=== PATIENT | female | born 2000 | race Hispanic/Latino ===

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

== ENCOUNTER 2020-06-28 20:42 | Emergency (ER) | payer BC, OTHER ==
[2020-06-28] MEDS ORDERED: METHYLPREDNISOLONE 125 MG INJ ONE (23:16)
[2020-06-28] MEDS ORDERED: DIPHENHYDRAMINE 50 MG/ML VIAL ONE (23:17)
[2020-06-28] MEDS ORDERED: FAMOTIDINE 20 MG/2 ML VIAL IV ONE (23:17)
--- NOTE | 2020-06-29 00:56 | ER ---
Nurse's Notes [facility] Name: Jana Cavanaugh Age: 19 yrs Sex: Female : 2000 Arrival Date: 06/28/2020 Time: 20:48 Bed 6 Private MD: Diagnosis: Allergy status to serum and vaccine status Presentation: 06/28 21:44 Chief complaint: Patient states: since she received the COVID vaccine 3 or 4 days ago bb she feels like her throat is tight and she is having difficulty breathing, she has been having "little panic attacks" which are making her light-headed. Coronavirus screen: At this time, the client does not indicate any symptoms associated with coronavirus-19. COVID vaccine several days ago. Ebola Screen: No symptoms or risks identified at this time. Initial Sepsis Screen: Does the patient meet any 2 criteria? No. Patient's initial sepsis screen is negative. Does the patient have a suspected source of infection? No. Patient's initial sepsis screen is negative. Risk Assessment: Do you want to hurt yourself or someone else?. Onset of symptoms was June 24, 2020. 21:44 Method Of Arrival: Ambulatory bb 21:44 Acuity: JOHANNA 4 bb Triage Assessment: 21:46 General: Appears in no apparent distress. Behavior is calm, cooperative. Pain: Denies bb pain. EENT: Throat is clear is pink. Neuro: Level of Consciousness is awake, alert, obeys commands, Oriented to person, place, time, situation. Cardiovascular: No deficits noted. Respiratory: Reports shortness of breath Onset: The symptoms/episode began/occurred 3 - 4 days, Derm: Skin is pink, warm \\T\\ dry. Musculoskeletal: Circulation, motion, and sensation intact. 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 - Social history:: Smoking status: Patient denies any tobacco usage or history of. Screenin:00 Abuse screen: Denies threats or abuse. Denies injuries from another. Nutritional wh screening: No deficits noted. Tuberculosis screening: No symptoms or risk factors identified. Fall Risk None identified. Assessment: 23:00 General: Appears in no apparent distress. Behavior is calm, cooperative, appropriate wh for age. Pain: Denies pain. Neuro: Level of Consciousness is awake, alert, obeys commands, Oriented to person, place, time, situation, Appropriate for age. Cardiovascular: Heart tones S1 S2 Rhythm is regular. Respiratory: Airway is patent Respiratory effort is even, unlabored, Respiratory pattern is regular, symmetrical, Breath sounds are clear bilaterally. GI: Abdomen is flat, non-distended. : No signs and/or symptoms were reported regarding the genitourinary system. EENT: Throat is pink. Derm: Skin is intact, is healthy with good turgor, Skin is pink, warm \\T\\ dry. normal. Musculoskeletal: Circulation, motion, and sensation intact. 06/29 00:10 Reassessment: Patient appears in no apparent distress at this time. No changes from previously documented assessment. Patient and/or family updated on plan of care and expected duration. Pain level reassessed. Patient is alert, oriented x 3, equal unlabored respirations, skin warm/dry/pink. 01:15 Reassessment: Patient appears in no apparent distress at this time. Patient and/or family updated on plan of care and expected duration. Pain level reassessed. Patient is alert, oriented x 3, equal unlabored respirations, skin warm/dry/pink. Vital Signs: 06/28 21:03 BP 116 / 63; Pulse 80; Resp 18; Temp 98.2; Pulse Ox 100% on R/A; Weight 63.5 kg; Height ar5 5 ft. 1 in. (154.94 cm); Pain 0/10; 06/29 00:00 BP 107 / 56; Pulse 71; Resp 18; Pulse Ox 100% on R/A; wh 01:17 BP 105 / 62; Pulse 78; Resp 18; Pulse Ox 100% on R/A; wh 06/28 21:03 Body Mass Index 26.45 (63.50 kg, 154.94 cm) ar5 ED Course: 06/28 20:48 Patient arrived in ED. cl3 21:46 Triage completed. bb 21:46 Arm band placed on Patient placed in waiting room, Patient notified of wait time. bb 22:41 Page, Guru, PA is PHCP. cp 22:41 Jane Byrd MD is Attending Physician. cp 22:55 Serafin To, RN is Primary Nurse. 23:00 Patient has correct armband on for positive identification. Bed in low position. Call light in reach. Side rails up X 1. Pulse ox on. NIBP on. 23:00 Inserted saline lock: 20 gauge in right antecubital area, using aseptic technique. Blood collected. 06/29 01:17 No provider procedures requiring assistance completed. IV discontinued, intact, bleeding controlled, No redness/swelling at site. Administered Medications: 06/28 23:00 Drug: SOLU-Medrol 125 mg Route: IVP; Site: right antecubital; 06/29 01:18 Follow up: Response: No adverse reaction 06/28 23:02 Drug: Pepcid (famotidine) 20 mg Route: IVP; Site: right antecubital; 06/29 01:18 Follow up: Response: No adverse reaction 06/28 23:04 Drug: Benadryl (diphenhydrAMINE) 25 mg Route: IVP; Site: right antecubital; 06/29 01:18 Follow up: Response: No adverse reaction Outcome: 00:55 Discharge ordered by . cp 01:17 Discharged to home ambulatory. 01:17 Condition: stable 01:17 Discharge instructions given to patient, Instructed on discharge instructions, follow up and referral plans. medication usage, POC Demonstrated understanding of instructions, follow-up care, medications, POC Prescriptions given X 2. 01:18 Patient left the ED. Signatures: Antonina Snowden RN RN bb Page, Corey, PA PA cp Habalo, Winsy, RN Windy Luciano ar5 Navya Rangel cl3
--- NOTE | 2020-06-29 00:56 | EDPHYS ---
Physician Documentation [facility] Name: Jana Cavanaugh Age: 19 yrs Sex: Female : 2000 Arrival Date: 06/28/2020 Time: 20:48 Bed 6 Private MD: ED Physician Jane Byrd HPI: 06/28 22:55 This 19 yrs old Female presents to ER via Ambulatory with complaints of cp Breathing Difficulty. 22:55 The patient presents with tightness of throat. Onset: The symptoms/episode cp began/occurred 4 day(s) ago. 22:55 Associated signs and symptoms: Pertinent negatives chest pain, cough, fever, flu-like cp symptoms. 22:55 Patient reports symptoms started after receiving first dose of Moderna COVID vaccine. 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 - Social history:: Smoking status: Patient denies any tobacco usage or history of. ROS: 23:00 Constitutional: Negative for body aches, chills, fever, poor PO intake. cp 23:00 Eyes: Negative for injury, pain, redness, and discharge. cp 23:00 Cardiovascular: Negative for chest pain, palpitations. 23:00 Respiratory: Negative for cough, wheezing. 23:00 Abdomen/GI: Negative for abdominal pain, nausea, vomiting, and diarrhea. 23:00 Skin: Negative for rash. 23:00 All other systems are negative. Exam: 23:10 Constitutional: The patient appears in no acute distress, alert, awake, cp non-diaphoretic, non-toxic, well developed, well nourished. 23:10 Head/Face: Normocephalic, atraumatic. cp 23:10 Eyes: Periorbital structures: appear normal, Conjunctiva: normal, no exudate, no injection, Sclera: no appreciated abnormality, Lids and lashes: appear normal, bilaterally. 23:10 ENT: External ear(s): are unremarkable, Nose: is normal, Mouth: Lips: moist, Oral mucosa: pink and intact, moist, Posterior pharynx: Airway: no evidence of obstruction, patent. 23:10 Neck: ROM/movement: is normal, is supple, without pain, no range of motions limitations. 23:10 Chest/axilla: Inspection: normal, Palpation: is normal, no crepitus, no tenderness. 23:10 Cardiovascular: Rate: normal, Rhythm: regular. 23:10 Respiratory: the patient does not display signs of respiratory distress, Respirations: normal, no use of accessory muscles, no retractions, labored breathing, is not present, Breath sounds: are clear throughout, no decreased breath sounds, no stridor, no wheezing. 23:10 Abdomen/GI: Exam negative for discomfort, distension, guarding, Inspection: abdomen appears normal. 23:10 Back: pain, is absent, ROM is normal. 23:10 Skin: no rash present. 23:10 Neuro: Orientation: to person, place \T\ time. Mentation: is normal. Vital Signs: 21:03 BP 116 / 63; Pulse 80; Resp 18; Temp 98.2; Pulse Ox 100% on R/A; Weight 63.5 kg; Height ar5 5 ft. 1 in. (154.94 cm); Pain 0/10; 06/29 00:00 BP 107 / 56; Pulse 71; Resp 18; Pulse Ox 100% on R/A; wh 01:17 BP 105 / 62; Pulse 78; Resp 18; Pulse Ox 100% on R/A; wh 06/28 21:03 Body Mass Index 26.45 (63.50 kg, 154.94 cm) ar5 MDM: 06/28 22:51 Patient medically screened. 06/29 00:00 Differential diagnosis: anaphylaxis, strep throat. cp 00:55 Data reviewed: vital signs, nurses notes, and as a result, I will discharge patient. 00:55 Counseling: I had a detailed discussion with the patient and/or guardian regarding: the cp historical points, exam findings, and any diagnostic results supporting the discharge/admit diagnosis, to return to the emergency department if symptoms worsen or persist or if there are any questions or concerns that arise at home. Response to treatment: the patient's symptoms have markedly improved after treatment. Administered Medications: 06/28 23:00 Drug: SOLU-Medrol 125 mg Route: IVP; Site: right antecubital; 06/29 01:18 Follow up: Response: No adverse reaction 06/28 23:02 Drug: Pepcid (famotidine) 20 mg Route: IVP; Site: right antecubital; 06/29 01:18 Follow up: Response: No adverse reaction 06/28 23:04 Drug: Benadryl (diphenhydrAMINE) 25 mg Route: IVP; Site: right antecubital; 06/29 01:18 Follow up: Response: No adverse reaction Disposition: 04:46 Co-signature as Attending Physician, Jane Byrd MD. ma2 Disposition: 06/29/20 00:55 Discharged to Home. Impression: Allergy status to serum and vaccine status. - Condition is Stable. - Discharge Instructions: Allergies, Adult. - Prescriptions for Pepcid 20 mg Oral Tablet - take 1 tablet by ORAL route every 12 hours for 5 days; 10 tablet. Prednisone 20 mg Oral Tablet - take 3 tablet by ORAL route once daily for 5 days; 15 tablet. - Medication Reconciliation Form, Thank You Letter, Antibiotic Education, Prescription Opioid Use form. - Follow up: Private Physician; When: 2 - 3 days; Reason: Worsening of condition. - Problem is new. - Symptoms have improved. Signatures: Antonina Snowden RN RN Guru Brown PA PA cp Habalo, Winsy, RN RN Jane Byrd MD MD ma2 Corrections: (The following items were deleted from the chart) 01:18 00:55 06/29/2020 00:55 Discharged to Home. Impression: Allergy status to serum and vaccine status. Condition is Stable. Forms are Medication Reconciliation Form, Thank You Letter, Antibiotic Education, Prescription Opioid Use. Follow up: Private Physician; When: 2 - 3 days; Reason: Worsening of condition. Problem is new. Symptoms have improved. cp
[2020-06-29 02:21] VITALS: TEMP 98.2; O2SAT 100
[2020-06-29 02:39] VITALS: BP 105/62
== END 2020-06-29 01:18 | disposition home or self-care (01) ==
LOC: ER 20:42
DX: R06.02 Shortness of breath (principal); Z88.7 Allergy status to serum and vaccine
CPT/HCPCS: J1200; J2930; 96374; 96375; 99284

== ENCOUNTER 2021-01-21 17:56 | Emergency (ER) | payer OTHER, SELFPAY ==
--- NOTE | 2021-01-21 19:37 | ER ---
Nurse's Notes [facility] Name: Jana Cavanaugh Age: 20 yrs Sex: Female : 2000 Arrival Date: 01/21/2021 Time: 17:56 Bed 26 Private MD: Diagnosis: Presentation: 01/21 18:04 Chief complaint: Patient states: I began having really sharp pains in my left breast ld1 over the past two weeks, when walking it feels very sore, and warm to touch. Coronavirus screen: At this time, the client does not indicate any symptoms associated with coronavirus-19. Ebola Screen: No symptoms or risks identified at this time. Initial Sepsis Screen: Does the patient meet any 2 criteria? No. Patient's initial sepsis screen is negative. Does the patient have a suspected source of infection? No. Patient's initial sepsis screen is negative. Risk Assessment: Do you want to hurt yourself or someone else? Patient reports no desire to harm self or others. Onset of symptoms was January 06, 2021. 18:04 Method Of Arrival: Ambulatory ld1 18:04 Acuity: JOHANNA 3 ld1 Triage Assessment: 18:06 General: Appears in no apparent distress. comfortable, Behavior is calm, cooperative, ld1 appropriate for age. Pain: Complains of pain in left breast Pain does not radiate. Pain currently is 8 out of 10 on a pain scale. Quality of pain is described as heavy, sharp, shooting, throbbing, Pain began two weeks Is continuous. Neuro: Level of Consciousness is awake, alert, obeys commands, Oriented to person, place, time, situation, Appropriate for age. Cardiovascular: Denies chest pain, Capillary refill < 3 seconds Patient's skin is warm and dry. Respiratory: Airway is patent Respiratory effort is even, unlabored, Respiratory pattern is regular, symmetrical. 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 - Social history:: Smoking status: Patient denies any tobacco usage or history of. Patient/guardian denies using alcohol. Assessment: 19:16 General: Appears in no apparent distress. comfortable, Behavior is calm, cooperative. vg1 Pain: Complains of pain in left breast Pain currently is 8 out of 10 on a pain scale. Quality of pain is described as burning, sharp, tender, Pain began about two weeks ago. Neuro: Level of Consciousness is awake, alert, obeys commands, Oriented to person, place, time, situation. Cardiovascular: Patient's skin is warm and dry. Respiratory: Airway is patent Respiratory effort is even, unlabored. GI: No signs and/or symptoms were reported involving the gastrointestinal system. : No signs and/or symptoms were reported regarding the genitourinary system. EENT: No signs and/or symptoms were reported regarding the EENT system. Derm: Skin is intact. Derm:. Musculoskeletal: Circulation, motion, and sensation intact. 19:35 Reassessment: spoke to pt's shade matcher who states pt is very upset and embarrassed by bb how nurse talked to her pt left the ED. Vital Signs: 18:04 BP 120 / 73; Pulse 70; Resp 18; Temp 98.7(O); Pulse Ox 98% on R/A; Weight 65.77 kg; ld1 Height 5 ft. 1 in. (154.94 cm); Pain 8/10; 18:04 Body Mass Index 27.40 (65.77 kg, 154.94 cm) ld1 ED Course: 17:56 Patient arrived in ED. am2 18:06 Triage completed. ld1 18:06 Arm band placed on right wrist. ld1 18:45 Carlene Navarrete RN is Primary Nurse. vg1 19:32 Guru Stapleton MD is Attending Physician. kate Administered Medications: No medications were administered Outcome: 19:36 Patient left the ED. bb Signatures: Guru Stapleton MD MD cha Ballard, Brenda RN RN bb Addis Barraza am2 Carlene Navarrete RN RN vg1 Susan Holliday RN RN ld1
[2021-01-21 19:40] VITALS: BP 120/73; TEMP 98.7; O2SAT 98
== END 2021-01-21 19:36 | disposition left against medical advice (07) ==
LOC: ER 17:56
DX: Z53.21 Procedure and treatment not carried out due to patient leaving prior to being seen by health care provider (principal)
CPT/HCPCS: 99281

== ENCOUNTER 2023-01-27 08:53 | Day surgery (SDC) | payer OTHER ==
[2023-01-27] MEDS ORDERED: Ringers Lactate 1,000 ML IV ONE (09:33)
[2023-01-27] MEDS ORDERED: OXYMETAZOLINE HCL 0.05% 15ML NAS ONE ×2 (09:33→11:31)
[2023-01-27] MEDS ORDERED: LIDOCAINE HCL/EPINEPHRINE 20 ML MDV ONE ×2 (11:31→11:41)
[2023-01-27] MEDS ORDERED: BACITRACIN OINTMENT 14 GM TUBE TOP ONE (11:31)
[2023-01-27] MEDS ORDERED: dexAMETHasone 10 MG/ML VIAL ONE (11:40)
[2023-01-27] MEDS ORDERED: LIDOCAINE 2% MPF 5 ML VIAL ONE (11:40)
[2023-01-27] MEDS ORDERED: MIDAZOLAM HCL 2 MG/2 ML INJ ONE (11:40)
[2023-01-27] MEDS ORDERED: propofoL 200 MG/20 ML VIAL IV ONE (11:40)
[2023-01-27] MEDS ORDERED: ROCURONIUM 50 MG/5 ML VIAL IV ONE (11:40)
[2023-01-27] MEDS ORDERED: FENTANYL CITR 100 MCG/2 ML ONE ×2 (11:40→12:35)
[2023-01-27] MEDS ORDERED: ONDANSETRON 4 MG/2 ML VIAL ONE (11:45)
[2023-01-27 13:23] VITALS: O2SAT 100
--- NOTE | 2023-01-27 13:35 | P.OP ---
Induction Machine Operator: NONE,NONE Preoperative diagnosis: Septal deviation, cindy bullosa, turbinate hypertrophy, nasal obstruction Postoperative diagnosis: Same Primary procedure: Septoplasty Secondary procedure: Nasal endoscopy with right cindy resection Other procedure(s): Turbinate outfracture Anesthesia: General via endotracheal tube Estimated blood loss: 5-10 mL Specimen: Septal cartilage and bone Operative Technique: Patient was brought to the operating room and placed under general anesthesia via oral endotracheal tube. Nasal hairs were trimmed and the 0 degree endoscope. The patient was noted to have a widened right middle turbinate, prominent bilateral inferior turbinates and left high septal deviation. The tract balloon device was placed in the right nasal cavity along the nasal floor and slowly inflated to the pressure of 10 dana and held in place for 2 minutes. The balloon was slowly released and removed. This resulted in significant down fracture and compression of the inferior turbinate along with mobilization and compression of the prominent right maxillary spine. Similar procedure was performed on the left side resulting in excellent down fracture of the left inferior turbinate. 0 degree endoscope was then used to visualize the right nasal cavity with attention to the middle turbinate. The head of the middle turbinate was injected with 1% lidocaine with epinephrine. A sickle knife and endoscopic scissors were used to incise through the head of the middle turbinate and along its superior and inferior aspects with removal of the lateral aspect, leaving the main portion of the middle turbinate in place. The bone fragment was removed using Blakesley forceps and a Bahman-Cut was used to refine the cut edges. Removal of this bone resulted in significant widening of the middle meatus region in regards to airflow. Attention was then turned to the septum. Using a headlight and nasal speculum, a left mucosal incision was made approximately 1-1/2 cm from the caudal aspect. The left mucosa was carefully elevated from the underlying cartilage and bone revealing the curved upper portion. A scalpel and caudal elevator were used to incise through the cartilaginous portion of the septum and the right mucosa was carefully elevated from the bone. Grigsby rongeurs and through cut Blakesley was used to remove portions of cartilage and bone to allow positioning of the septum towards midline. After adequate removal, the septum appeared to be much improved. The mucosal flap was carefully repositioned. Due to the location of the incision, closure was not performed but the right and left nasal cavities were packed using a positive separate nasal dressing. The positive step was thoroughly soaked with saline to aid in hemostasis and provide protection over the left septal incision. The oral cavity and oropharynx were carefully suctioned and the patient was returned to care of anesthesia for awakening extubation in the operating room procedure without difficulty. Disposition: The patient will be discharged home later today and care her boyfriend with [id number] pain medications and tramadol to be used as needed. Nasal precautions are required including avoidance of nose blowing, heavy lifting and the patient is recommended to use nasal saline spray multiple times per day over the next 2 weeks. Complications: None Implants: Posisep to bilateral nasal cavity Fluids & blood products: See anesthesia record Transferred to: Recovery Room Condition: Good
[2023-01-27] MEDS ORDERED: MEPERIDINE HCL 25 MG/ML SYR ONE (13:55)
[2023-01-27 14:09] LABS: Urine Specific Gravity/Preg 1.015 (1.005-1.030)
[2023-01-27 14:59] VITALS: BP 129/76; TEMP 97.6
== END 2023-01-27 14:53 | disposition home or self-care (01) ==
LOC: OR 08:53
PROVIDERS: ATTEND Otolaryngology
PROC: 09SM4ZZ Reposition Nasal Septum, Percutaneous Endoscopic Approach (ICD-10-PCS; 2023-01-27)
PROC: 09JK8ZZ Inspection of Nasal Mucosa and Soft Tissue, Via Natural or Artificial Opening Endoscopic (ICD-10-PCS; principal; 2023-01-27 10:00)
DX: J34.2 Deviated nasal septum (principal); J34.89 Other specified disorders of nose and nasal sinuses; J34.3 Hypertrophy of nasal turbinates
CPT/HCPCS: 31240; 30520; 30930; 81025; 88300; J2704; J2001; J2250; J3010 ×2; J1100; J2175; J2405; J7120

== ENCOUNTER 2023-08-14 20:27 | Emergency (ER) | payer OTHER ==
[2023-08-14] MEDS ORDERED: KETOROLAC 30 MG/ML INJ ONE (20:47)
[2023-08-14] MEDS ORDERED: DIAZEPAM 10 MG/2 ML INJ SYRINGE ONE (20:47)
[2023-08-14 21:17] LABS: Absolute Eosinophils 0.5 K/uL (0-0.5); Absolute Monocytes 0.7 K/uL (0.1-1.3); Absolute Neutrophil 2.9 K/uL (1.8-8.0); Basophils % 0.4 % (0-1.3); Eosinophils % 5.3 % (0-4.4); Hematocrit 37.5 % (36.0-45.0); Hemoglobin 12.7 g/dL (12.0-15.0); Lymphocytes % 54.5 % (15.3-44.8); MCH 29.7 pg (27.0-35.0); MCHC 33.8 g/dL (32.0-36.0); MCV 87.8 fL (80-100); MPV 7.7 fL (7.6-11.3); Neutrophils % 31.8 % (41.7-73.7); Nucleated Red Blood Cells % 0.1 % (0-0); Platelets 309 thou/uL (152-406); RBC Red Blood Cell Count 4.27 M/uL (3.86-4.86); Red Cell Distribution Width 12.8 % (12.1-15.2)
[2023-08-14 21:22] LABS: Anion Gap 15.2 mEq/L (5.0-15.0); BUN Blood Urea Nitrogen 19 mg/dL (7-18); Bicarbonate 21 mEq/L (21-32); Glomerular Filtration Rate 76 ml/min (=/>90); Glucose Level 154 mg/dL (74-106); Potassium 3.2 mEq/L (3.5-5.1); Sodium Level 136 mEq/L (136-145)
[2023-08-14 21:23] LABS: Troponin High Sensitivity < 3.0 pg/mL (<58.9)
--- NOTE | 2023-08-14 21:37 | RAD REPORT ---
EXAM DESCRIPTION: RAD - Chest Single View - 08/14/2023 9:29 pm CLINICAL HISTORY: CHEST PAIN COMPARISON: No comparisons FINDINGS: Lines: None. Lungs: No evidence of edema or pneumonia. Pleural: No significant pleural effusions or pneumothorax. Cardiac: The heart size is within normal limits. Mediastinum: Within normal limits. Bones: No acute fractures. Other: None IMPRESSION: No acute cardiopulmonary disease.
--- NOTE | 2023-08-14 22:20 | RAD REPORT ---
EXAM DESCRIPTION: CTAbdomen Pelvis W Contrast - 08/14/2023 10:10 pm CLINICAL HISTORY: ABD PAIN COMPARISON: Abdomen Pelvis W Contrast dated 12/15/2017 TECHNIQUE: CT of the abdomen and pelvis was performed. All CT scans are performed using dose optimization technique as appropriate and may include automated exposure control or mA/KV adjustment according to patient size. FINDINGS: Lower chest: No acute abnormality. Liver: No acute abnormality or suspicious lesions. Biliary: No biliary ductal dilatation. Stomach: No significant focal abnormality. Duodenum: No significant focal abnormality. Pancreas: No significant abnormality. Spleen: No significant abnormality. Adrenal: No suspicious lesions. Kidney/ureter: No hydronephrosis. No renal calculi. Retroperitoneum: No retroperitoneal adenopathy. Vascular: No aneurysm. Bowel: No significant focal abnormality. Moderate colonic stool burden. No appendicitis. Peritoneum: No ascites or free air. Bladder: Grossly unremarkable. Reproductive: IUD. Bones: No acute fracture. Other: n/a IMPRESSION: No acute intra-abdominal or pelvic finding. Normal appendix.
--- NOTE | 2023-08-14 22:30 | ER ---
Nurse's Notes [facility] Name: Jana Ramon Age: 22 yrs Sex: Female : 2000 Arrival Date: 08/14/2023 Time: 20:27 Bed 3 Private MD: Diagnosis: Anxiety disorder, unspecified;Abdominal pain, Generalized;Hypokalemia Presentation: 08/13 20:28 Chief complaint: Patient states: PAIN ALL OVER BODY STARTED 30 MINUTES AGO. HAS HX OF jj7 ANXIETY. Coronavirus screen: At this time, the client does not indicate any symptoms associated with coronavirus-19. Ebola Screen: No symptoms or risks identified at this time. Initial Sepsis Screen: Does the patient meet any 2 criteria? HR > 90 bpm. Yes Does the patient have a suspected source of infection? No. Patient's initial sepsis screen is negative. Risk Assessment: Do you want to hurt yourself or someone else? Patient reports no desire to harm self or others. Onset of symptoms was August 14, 2023. 20:28 Method Of Arrival: Ambulatory [facility] 20:28 Acuity: JOHANNA 3 jj7 Triage Assessment: 20:29 General: Appears in no apparent distress. comfortable, Behavior is cooperative, jj7 appropriate for age, anxious. Pain: Complains of pain in back, chest and abdomen. Cardiovascular: Chest pain is described as mild. 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 - Infectious Disease History:: Denies. - Social history:: Smoking status: Patient denies any tobacco usage or history of. Patient/guardian denies using alcohol, street drugs, IV drugs. Screenin:52 [facility] ED Fall Risk Assessment (Adult) History of falling in the last 3 months, kd3 including since admission No falls in past 3 months (0 pts) Confusion or Disorientation No (0 pts) Intoxicated or Sedated No (0 pts) Impaired Gait No (0 pts) Mobility Assist Device Used No (0 pt) Altered Elimination No (0 pt) Score/Fall Risk Level 0 - 2 = Low Risk Oriented to surroundings. Abuse screen: Denies threats or abuse. Denies injuries from another. Nutritional screening: No deficits noted. Tuberculosis screening: No symptoms or risk factors identified. Assessment: 21:51 General: Appears uncomfortable. Neuro: Level of Consciousness is awake, alert, obeys kd3 commands, Oriented to person, place, time, situation. Respiratory: Airway is patent Trachea midline Respiratory effort is even, unlabored. 21:57 General: PT reports improvement of symptoms with interventions. Pt awaiting CT. . kd3 Vital Signs: 20:28 BP 131 / 86; Pulse 115; Resp 21; Temp 97; Pulse Ox 100% ; Weight 63.5 kg; Height 5 ft. jj7 1 in. ; Pain 10/10; 21:08 Pulse 102; ec2 21:26 Pulse 90; ec2 21:57 BP 108 / 68; Pulse 87; Resp 19; Pulse Ox 99% ; kd3 20:28 Body Mass Index 26.45 (63.50 kg, 154.94 cm) jj7 20:28 Pain Scale: Adult j7 ED Course: 20:28 Patient arrived in ED. ec2 20:29 Triage completed. jj7 20:29 Arm band placed on right wrist. jj7 20:31 Farooq Peterson MD is Attending Physician. ec2 20:44 Shannan Salter, FLIP is Primary Nurse. kd3 20:44 Inserted saline lock: 20 gauge in left antecubital area, using aseptic technique. Blood kd3 collected. 21:31 XRAY Chest (1 view) In Process Unspecified. EDMS 22:12 CT Abd/Pelvis - IV Contrast Only In Process Unspecified. EDMS 22:39 Patient has correct armband on for positive identification. Provided Education on: lab kd3 work . 22:39 No provider procedures requiring assistance completed. IV discontinued, intact, kd3 bleeding controlled, No redness/swelling at site. Pressure dressing applied. Administered Medications: 20:52 Drug: Diazepam IVP 10 mg IVP once Route: IVP; Site: left antecubital; kd3 22:40 Follow up: Response: No adverse reaction; Anxiety decreased kd3 20:53 Drug: Ketorolac IVP 15 mg IVP once Route: IVP; Site: left antecubital; kd3 22:40 Follow up: Response: No adverse reaction; Pain is decreased kd3 Medication: 22:40 VIS not applicable for this client. kd3 Outcome: 22:29 Discharge ordered by . ec2 22:39 Discharged to home ambulatory, kd3 22:39 Condition: stable 22:39 Discharge instructions given to patient, family, Instructed on discharge instructions, follow up and referral plans. medication usage, Demonstrated understanding of instructions, follow-up care, 22:40 Patient left the ED. kd3 Signatures: Dispatcher [employer] Shannan Appiah RN RN kd3 Phill Alfonso RN RN jj7 Farooq Peterson MD MD ec2
--- NOTE | 2023-08-14 22:30 | EDPHYS ---
Physician Documentation [facility] Name: Jana Ramon Age: 22 yrs Sex: Female : 2000 Arrival Date: 08/14/2023 Time: 20:27 Bed 3 Private MD: ED Physician Farooq Peterson HPI: 08/13 20:41 This 22 yrs old Female presents to ER via Ambulatory with complaints of body ec2 pain, bilateral hand numbness. 20:41 Patient arrives today for 1 day of symptoms. Patient reports that she has been ec2 experiencing chest and abdominal pain along with bilateral hand tingling. Patient reports history of anxiety and bipolar disorder. Patient reports no specific alleviating or exacerbating factors. Denies fevers or chills, no nausea or vomiting. . 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 - Infectious Disease History:: Denies. - Social history:: Smoking status: Patient denies any tobacco usage or history of. Patient/guardian denies using alcohol, street drugs, IV drugs. ROS: 20:41 Constitutional: as per hpi ec2 Exam: 20:41 Constitutional: GEN: NAD Head: atraumatic Eyes: EOMI Ears: External ears are ec2 normal. CV: tachycardic LUNGS: no respiratory distress ABD: non-distended, soft, generally tender, no guarding, not rigid. SKIN: no evidence of rashes MSK: no evidence of trauma NEURO: moves all extremities equally. Psych: Markedly anxious individual was restless. Vital Signs: 20:28 BP 131 / 86; Pulse 115; Resp 21; Temp 97; Pulse Ox 100% ; Weight 63.5 kg; Height 5 ft. jj7 1 in. ; Pain 10/10; 21:08 Pulse 102; ec2 21:26 Pulse 90; ec2 21:57 BP 108 / 68; Pulse 87; Resp 19; Pulse Ox 99% ; kd3 20:28 Body Mass Index 26.45 (63.50 kg, 154.94 cm) [facility] 20:28 Pain Scale: Adult jj7 MDM: 20:32 Patient medically screened. ec2 20:41 Data reviewed: vital signs. ED course: Patient arrives today for evaluation of thoracic ec2 abdominal pain along with bilateral upper extremity numbness. Examination remarkable for anxious individual who is tender in the abdomen. Will obtain lab work, urine studies, testing as well as EKG. Differential diagnosis includes processes such as anxiety, , electrolyte disturbances, arrhythmia.. 20:43 ED course: Dependently reviewed and interpreted by me, marked artifact appreciated, ec2 shows sinus tachycardia, rate of 103, no acute ST segment elevations, intervals are nonconcerning.. 21:26 ED course: Metabolic profile shows slight hypokalemia with potassium of 3.2, renal ec2 dysfunction with creatinine 1.05 and a GFR 76. CBC is unrevealing, troponin is within normal ranges. On reassessment patient with improvement in status, improvement in vital signs. . 21:43 ED course: Chest x-ray independently reviewed and interpreted by me, shows no acute ec2 intrathoracic process. Pending testing and CT imaging. . 22:22 ED course: CT abdomen pelvis shows no acute intra-abdominal process. On reassessment ec2 patient is well-appearing no acute distress. I suspect anxiety driving the patient's presentation today. Will discharge home. Return precautions given.. 08/13 20:40 Order name: Basic Metabolic Panel; Complete Time: 21:26 ec2 08/13 20:40 Order name: CBC with Diff; Complete Time: 21: ec2 08/13 20:40 Order name: Troponin HS; Complete Time: 21: ec2 08/13 21:26 Order name: Test Serum, Qualitat; Complete Time: 21:59 EDMS 08/13 20:40 Order name: XRAY Chest (1 view); Complete Time: 21:43 ec2 08/13 20:40 Order name: CT Abd/Pelvis - IV Contrast Only; Complete Time: 22:22 ec2 08/13 20:40 Order name: EKG; Complete Time: 20:41 ec2 08/13 20:40 Order name: Cardiac monitoring; Complete Time: 20:44 ec2 08/13 20:40 Order name: EKG - Nurse/Tech; Complete Time: 20:44 ec2 08/13 20:40 Order name: IV Saline Lock; Complete Time: 20:44 ec2 08/13 20:40 Order name: Labs collected and sent; Complete Time: 20:44 ec2 08/13 20:40 Order name: O2 Per Protocol; Complete Time: 20:44 ec2 08/13 20:40 Order name: O2 Sat Monitoring; Complete Time: 20:44 ec2 Administered Medications: 20:52 Drug: Diazepam IVP 10 mg IVP once Route: IVP; Site: left antecubital; kd3 22:40 Follow up: Response: No adverse reaction; Anxiety decreased kd3 20:53 Drug: Ketorolac IVP 15 mg IVP once Route: IVP; Site: left antecubital; kd3 22:40 Follow up: Response: No adverse reaction; Pain is decreased kd3 Disposition Summary: 08/14/23 22:29 Discharge Ordered Notes: Location: Home ec2 Condition: Stable ec2 Diagnosis - Anxiety disorder, unspecified ec2 - Abdominal pain, Generalized ec2 - Hypokalemia ec2 Discharge Instructions: - Discharge Summary Sheet ec2 - Panic Attack ec2 Forms: - Medication Reconciliation Form ec2 - Antibiotic Education ec2 - Prescription Opioid Use ec2 - Patient Portal Instructions ec2 - Leadership Thank You Letter ec2 Signatures: Dispatcher [employer] Shannan Appiah RN RN kd3 Phill Alfonso RN RN jj7 Farooq Peterson MD MD ec2 Corrections: (The following items were deleted from the chart) 21:45 21:43 ED course: Chest x-ray independently reviewed and interpreted by me, shows no ec2 acute intrathoracic process. Pending lab work and CT imaging. . ec2 21:58 20:43 Test, Urine+UC.LAB.BRZ ordered. EDMS EDMS
[2023-08-14 23:02] VITALS: BP 108/68; TEMP 97; O2SAT 99
--- NOTE | 2023-08-15 14:11 | EKG ---
Test Date: 2023-08-14 Test Time: 20:36:38 Continuing Education Specialist: ALEXANDRO MEASUREMENT RESULTS: Intervals: Rate: 103 WI: 126 QRSD: 78 QT: 338 QTc: 442 [place]: P: 41 WI: 126 QRS: 67 T: 13 INTERPRETIVE STATEMENTS: Sinus tachycardia Otherwise normal ECG No previous ECG available for comparison Electronically Signed On 08-15-23 14:09:55 CDT by Андрей Chanel
== END 2023-08-14 22:40 | disposition home or self-care (01) ==
LOC: ER 20:27
DX: F41.9 Anxiety disorder, unspecified (principal); R10.84 Generalized abdominal pain; E87.6 Hypokalemia
CPT/HCPCS: 93005; 85025; 80048; 36415; 84703; 84484; 74177; 71045; 96375; 96374; 99284; Q9967; J3360

== ENCOUNTER 2023-11-16 08:34 | Day surgery (SDC) | payer OTHER ==
[2023-11-13 11:36] LABS: Absolute Basophils 0.1 K/uL (0-0.5); Absolute Eosinophils 0.5 K/uL (0-0.5); Absolute Lymphocytes (CBC) 2.8 K/uL (0.7-4.9); Absolute Monocytes 0.6 K/uL (0.1-1.3); Absolute Neutrophil 2.9 K/uL (1.8-8.0); Basophils % 0.9 % (0-1.3); Eosinophils % 6.6 % (0-4.4); Hematocrit 39.8 % (36.0-45.0); Hemoglobin 13.2 g/dL (12.0-15.0); Lymphocytes % 41.1 % (15.3-44.8); MCHC 33.2 g/dL (32.0-36.0); MCV 90.3 fL (80-100); MPV 8.2 fL (7.6-11.3); Monocytes % 8.7 % (3.3-12.3); Neutrophils % 42.7 % (41.7-73.7); Platelets 286 thou/uL (152-406); RBC Red Blood Cell Count 4.41 M/uL (3.86-4.86); Red Cell Distribution Width 12.6 % (12.1-15.2)
[2023-11-13 11:36] LABS: Specific Gravity < 1.005 (1.005-1.030); Sqamous Epithelial <5 /HPF (None Seen); Urine Bacteria None Seen /HPF (<20); Urine Bilirubin NEGATIVE (Negative); Urine Blood 3+ (Negative); Urine Clarity Turbid (Clear); Urine Color Colorless (Yellow); Urine Culture Reflex Order NOT NEEDED; Urine Glucose NEGATIVE (Negative); Urine Ketones NEGATIVE (Negative); Urine Microscopic Reflex YN ORDER UMIC; Urine Nitrite NEGATIVE (Negative); Urine Protein NEGATIVE (Negative); Urine RBC <5 /HPF (None Seen); Urine Urobilinogen Normal (Normal); Urine WBC <5 /HPF (<5); Urine pH 6.5 (5.0-7.0)
[2023-11-15 13:24] LABS: Specific Gravity 1.015 (1.005-1.030)
[2023-11-16] MEDS: Ringers Lactate 1,000 ML IV ONE ×2 (09:02→11:15)
[2023-11-16] MEDS: SCOPOLAMINE HYDROBROMIDE PATCH TD ONE (09:12)
[2023-11-16] MEDS ORDERED: propofoL 200 MG/20 ML VIAL IV ONE (09:56)
[2023-11-16] MEDS ORDERED: LIDOCAINE 1% MPF 5 ML VIAL ONE (09:56)
[2023-11-16] MEDS ORDERED: dexAMETHasone 10 MG/ML VIAL ONE (09:56)
[2023-11-16] MEDS ORDERED: FENTANYL CITR 100 MCG/2 ML ONE ×2 (09:56→11:12)
[2023-11-16] MEDS ORDERED: ROCURONIUM 50 MG/5 ML VIAL IV ONE (09:56)
[2023-11-16] MEDS ORDERED: MIDAZOLAM HCL 2 MG/2 ML INJ ONE (09:56)
[2023-11-16] MEDS ORDERED: ONDANSETRON 4 MG/2 ML VIAL ONE (09:56)
[2023-11-16] MEDS: CEFAZOLIN SODIUM 2 GM/VIAL ONE (10:10)
[2023-11-16] MEDS ORDERED: EPHEDRINE SULF 50 MG/ML VIAL ONE (10:33)
[2023-11-16] MEDS: BUPIVACAINE 0.25% PF 30 ML VIAL ONE (10:38)
[2023-11-16] MEDS ORDERED: KETOROLAC 30 MG/ML INJ ONE (12:30)
[2023-11-16] MEDS: PROMETHAZINE INJ 25 MG/ML AMP ONE (13:15)
[2023-11-16 13:22] VITALS: O2SAT 98
[2023-11-16] MEDS: HYDROCODONE/APAP 5/325 MG TAB ONE (13:55)
[2023-11-16 14:19] VITALS: BP 119/60; TEMP 97.6
--- NOTE | 2023-11-16 18:22 | OP ---
Date of Procedure: 11/16/2023 Surgeon: Felicitas Desai MD Kiln Operator: Henna Quinones. Preoperative Diagnoses: Abnormal uterine bleeding, pelvic pain, dysmenorrhea, deep dyspareunia, freq uency of urination, and . 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 Procedures Performed: 1.Diagnostic hysteroscopy. 2.Diagnostic laparoscopy, extensive endometriosis excision, left ureterolysis, rectovaginal septum e ndometriotic nodule excision with dissection of the rectum from the endometrial implants. Estimated Blood Loss: 50. Anesthesia: General endotracheal. Complications: No complications. Drains: No drains. Condition: Stable. Specimens: 1.Right anterior cul-de-sac. 2.Left lateral wall and uterosacral ligament. 3.Left pararectal endometriosis. 4.Right pararectal and rectovaginal septum endometriotic nodule. 5.Right lateral wall and uterosacral endometriosis. Findings: Anterior cul-de-sac at the line of the bladder pillar endometriotic nodule was noted and e xcised. In a similar location on the opposite side, a very slight amount of brownish discoloration o n the peritoneum was noted without an implant and this was cauterized. Both uterosacral ligaments had implants in at least distal 4-5 cm of the ligament and nodular implant s on the left side that was lateral to the uterosacral between the ureter and the uterosacral and the n the nodule on the right is between the uterosacral in the rectum and the right pararectal space francisco t was invading the rectovaginal septum and adhesions going to the rectum. Right lateral wall implant s were also noted and excised. Small left paratubal cyst that was unremarkable and left undisturbed. Both ovaries were unremarkable as well as the tubes and round ligaments. The left round ligament h ad a small cystic area, which is not related to the endometriosis. Appendix, gallbladder, liver, upp er abdominal surfaces were all closely inspected and unremarkable. No evidence of an endometriosis. The IUD was well situated in the uterine cavity, however, after completing the case and having placed the uterine manipulator and removed, the strings were tucked into the cervical canal and difficult t o find, but these were left alone as there was no concern for displacement of the IUD or perforation. Indications: The patient is a young 22-year-old 0 with significant progressive dysmenorrhea and pelvic pain that is noncyclic and more recently has noticed dyspareunia, urinary urgency and freq uency symptoms, managed on oral contraceptives, had side effects with mood. Now on a ParaGard IUD fo r control. Had a hormonal progesterone IUD in the past, but she did not do well with. However , her progressive pain was the most leading reason for her procedure. Her bleeding was irregular, bu t not too heavy. No evidence of any infections of the cervix or uterus. No other clinical suspicion of bladder infect ions, so we discussed about the different options of treatment including medical treatment with GnRH antagonist or diagnostic laparoscopy endometriosis excision and then proceed with treatment as needed . After understanding the advantages and disadvantages of surgical and medical therapies, patient fe lt strongly that knowing a diagnosis and having the excision would be more acceptable at this time an d after understanding the bleeding, infection, injury to the bowel, bladder, and ureters risk, she wa s consented and brought to the OR. Description Of Procedure: After informed consent was re-verified in the preoperative area with her b oyfriend also present by her side and questions, answers were completed to their satisfaction. She w as then taken back to the OR. Placed in supine fashion on the operating table, general anesthesia was given. Placed in a dorsal li thotomy position using Antwon stirrups. Abdomen was prepped with ChloraPrep. Vulva, vagina, and yasemin neum with Betadine and draped in a sterile fashion. Arms were tucked by the side. SCDs were started . Positioning was checked. Time-out was done and procedure started. Diagnostic hysteroscopy, speculum placed to expose the cervix. Anterior lip was grasped with a long Allis clamp. Diagnostic hysteroscope was passed through the cervical canal into the uterine cavity. The IUD was well laid into the uterine cavity. No distortions, anatomical abnormalities here. Scop e was removed. Uterine manipulator was introduced and fixed in place. Gonzalez was placed to drain the bladder and attached to a drainage bag set to gravity. Diagnostic laparoscopy: A 10 mm infraumbilical curvilinear incision was made after 0.25% Marcaine wa s injected in the subcutaneous area with an 11 blade. Fascia was incised with the same and picked up with Hailey clamps. Then, the edges were tagged with 0 Vicryl sutures on each side. Peritoneum was entered sharply. Wily introduced after adequate insufflation. Site of entry was checked and was unremarkable. The patient was placed in Trendelenburg position. Three 5 ports were placed suprapubi c and bilateral lower quadrants under direct vision after injecting with Marcaine at both the fascia and the skin. Then, upper abdominal survey was completed, unremarkable liver, gallbladder, peritonea l surfaces, omentum, and appendix. The patient was placed in Trendelenburg and pelvic cavity was ass essed and the implants as discussed in the findings. Plan was to excise all the implants. Starting with an anterior right bladder pillar, peritoneal surface implant was picked up and circumfe rentially incised with the help of scissors and with the LigaSure with minimal coagulation, able to e xcise the entire implant. The small underlying tissue that was attached and it seemed to be the bloo d supply of the implant. This was also cauterized and cut until normal tissue was seen. The contral ateral side on the anterior cul-de-sac in a similar location, hemosiderin discoloration was seen and this was cauterized with the bipolar current. Left ureterolysis: The ureter appeared scarred to the left lateral wall implants as well as the uter osacral. 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 So, the ureter first had to be dissected and . So, peritoneum opened lateral to the ureter. The periureteric connective tissue was by sharp dissection from the peritoneal surface an d then the entire ureter was dissected from the medial surface of the broad ligament and dissected to the level of the ureteric tunnel. The relationship of the uterine vessels and the ureter were well visualized here and the ureter protected carefully with its blood supply. The peritoneal implants were then dissected from the left lateral wall and from the uterine vein. On ce the implants were from here and left on the uterosacral, then I started on the implant t hat was nodular on the peritoneum close to the distal uterosacral, but slightly lateral where the [place] rine vessels entered here. Careful dissection was performed along the uterine vein to take down all the blood supply to this implant and excised the implant at completion. Then, the peritoneum that wa s medial to the implants was incised and I had to excise a portion of the uterosacral connective tiss ue as well due to the infiltration of the implants. Once all this was excised in a single block, was handed out for permanent pathology. Left pararectal space was opened up with sharp scissors between the rectum and the nodule and this wa s circumferentially excised from its surrounding and underlying tissues and its attachment from the m edial aspect of the distal uterosacral. This was handed out. Right pararectal nodule: This was dissected by opening up the peritoneum that was free and did not h ave endometriosis on the superior portion of the rectovaginal septum. Then, entered into the prerect al space by dissecting the rectum down and incising the peritoneum sharply. Then, the prerectal fat was dissected to keep the fat mostly with the rectum. However, once I got to the right pararectal sp gita, this was dissected. The implant was completely excised from the space carefully protecting the nerves and keeping the dissection close to the perimeter of the nodule, however, being careful not to leave any endometriosis behind. Then, dissection was performed between the rectum and the nodule wi th push spread technique. Carefully the rectum was and the nodule resected. The last port ion of it was attached to the medial uterosacral and this was also excised and the nodule was brought out through the 10 port. The right lateral wall implants were excised by opening up the peritoneum lateral to them and dissect ing inferior and towards the uterine vessels and the distal ureter. All the underlying scar was also removed along with the implants and some implants present on the distal right uterosacral, these wer e excised carefully. Some portion of the uterosacral ligament was also excised with the another nodu lar implant immediately medial to it here. This was excised and included with the same specimen. Th orough irrigation and suction were performed. Excellent hemostasis. Both ureters were peristaltic w ithout any electrical, mechanical, or thermal injury to them. The S Sizer medium size was placed int o the rectum to ensure that the rectal wall was intact after all the nodular endometriosis was excise d. Portion of the rectovaginal septum on the right side was also excised along with this implant. Did not need to repair this portion. The fluid used to irrigate was suctioned out and there was hemo stasis and all pictures were taken and case ended. All the specimen labeled appropriately . Trocars were removed under direct vision. Gas was desufflated. Wily was removed. The tagged 0 Vicryl suture was used to close the fascial incision. All skin incisions were closed with interrupt ed 4-0 Monocryl sutures. Instrument, needle, and sponge counts were correct at the end of the case. The Gonzalez and the diagnostic manipulator were removed carefully. The strings were not visualized. IUD was not removed, left in place. We will follow up in 1 week and then 3 months postop. No other postoperative medications are planned for this patient in terms of treating endometriosis. Her signi ficant other was debriefed about her findings and she will have detailed explanation at the postop ap pointment. GO/MERARY Voice ID: [id number] Report ID: [id number]
== END 2023-11-16 14:10 | disposition home or self-care (01) ==
LOC: OR 08:34
PROVIDERS: ATTEND Obstetrics & Gynecology
PROC: 0DBW4ZZ Excision of Peritoneum, Percutaneous Endoscopic Approach (ICD-10-PCS; 2023-11-16)
PROC: 0WBF4ZZ Excision of Abdominal Wall, Percutaneous Endoscopic Approach (ICD-10-PCS; 2023-11-16)
PROC: 0DBP4ZZ Excision of Rectum, Percutaneous Endoscopic Approach (ICD-10-PCS; 2023-11-16)
PROC: 0TN74ZZ Release Left Ureter, Percutaneous Endoscopic Approach (ICD-10-PCS; 2023-11-16)
PROC: 0UJD8ZZ Inspection of Uterus and Cervix, Via Natural or Artificial Opening Endoscopic (ICD-10-PCS; principal; 2023-11-16 09:30)
DX: N93.9 Abnormal uterine and vaginal bleeding, unspecified (principal); R10.2 Pelvic and perineal pain; N94.6 Dysmenorrhea, unspecified; N94.12 Deep dyspareunia; R35.0 Frequency of micturition; N80.A62 Endometriosis of left ureter, unspecified depth; N80.42 Endometriosis of rectovaginal septum with involvement of vagina; N80.3C1 Endometriosis of the right uterosacral ligament, unspecified depth; N80.319 Endometriosis of the anterior cul-de-sac, unspecified depth
CPT/HCPCS: 85025; 81001; 36415; 86900; 86850; 81025; 86901; 88305; 58555; 58662; 50949; 44180; J2550; J2704; J2001; J2250; J3010 ×2; J1100; J2405; J7120 ×2